=== PATIENT | female | born 1985 | race Two or more races ===

== ENCOUNTER 2025-06-29 18:03 | Emergency (ER) | payer SELFPAY ==
[~2025-06-29] VITALS: Ht 170.2 cm; Wt 100.0 kg
--- NOTE | 2025-06-29 18:17 | ED.PDOC ---
History of Present Illness HPI Comments 39-year-old female presents with chief complaint of left knee pain. Patient reports on jumping on a trampoline when her left knee, spontaneously, "popped." patient endorses on having pain, with obvious deformity to her left knee. Denies any further acute injuries or symptoms at this time. 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 TINWARE History Social History Smoker: Non-Smoker Alcohol: Denies ETOH Use Drugs: Denies Drug Use Lives In: Home All Other Systems: Reviewed and Negative (Comprehensive review of systems are negative unless otherwise stated in HPI) Physical Exam General Appearance: No Apparent Distress, Normal HEENT: Normal ENT Inspection, Pharynx Normal, TMs Normal Neck: Full Range of Motion, Non-Tender, Normal, Normal Inspection Respiratory: Chest Non-Tender, Lungs Clear, No Accessory Muscle Use, No Respiratory Distress, Normal Breath Sounds Cardiovascular: No Edema, No JVD, No Murmur, No Gallop, Normal Peripheral Pulses, Regular Rate/Rhythm Breast Exam: Deferred Gastrointestinal: No Organomegaly, Non Tender, No Pulsatile Mass, Normal Bowel Sounds, Soft Genitalia: Deferred Pelvic: Deferred Rectal: Deferred Extremities: No calf tenderness, Normal capillary refill, No pedal edema, Tender (Left knee), Other (Obvious deformity to left knee) Musculoskeletal : Apperance: Normal Neurologic: Alert, servicer coin machines II-XII nml as Tested, No Motor Deficits, Normal Affect, Normal Mood, No Sensory Deficits Cerebellar Function: Normal Reflexes: Normal Skin: Dry, Normal Color, Warm Lymphatic: No Adenopathy Was a procedure done? Was a procedure done?: Yes Sedation Sedation?: Yes Informed consent obtained: Yes Sedation start time: 18:40 Sedation end time: 18:55 Sedation total time: 15 minutes Reduction Indication: Dislocation Sedation: Consents obtained, Sedation as ordered (Propofol) Intra-articular anesthetic lew: Yes Nerve Block: Other (Left patella) Post-reduction x-ray show: Reduction, Good Alignment Informed consent obtained: Yes Risks/benefits/alt described: Yes Differential Dx Considerations may include: Dislocation, sprain, fractures, contusions, ecchymosis, among others X-Ray, Labs, Meds, VS Vital Signs Date Time Temp Pulse Resp B/P (MAP) Pulse Ox O2 Delivery O2 Flow Rate FiO2 06/29/25 18:38 76 17 137/77 06/29/25 18:12 98.0 96 16 167/84 99 98.0 Lab Test 06/29/25 18:19 Range/Units White Blood Count 10.8 4.4-10.8 10^3/uL Red Blood Count 4.20 4.0-5.20 10^6/uL Hemoglobin 11.8 L 12.2-16.2 g/dL Hematocrit 35.4 L 36.0-46.0 % Mean Corpuscular Volume 84.3 80.0-100.0 fL Mean Corpuscular Hemoglobin 28.2 28.0-32.0 pg Mean Corpuscular Hemoglobin Concent 33.4 32.0-36.0 g/dL Red Cell Distribution Width 12.5 11.8-14.3 % Platelet Count 345 140-450 10^3/uL Mean Platelet Volume 7.8 6.9-10.8 fL Neutrophils (%) (Auto) 60.3 37.0-80.0 % Lymphocytes (%) (Auto) 31.1 10.0-50.0 % Monocytes (%) (Auto) 7.0 0.0-12.0 % Eosinophils (%) (Auto) 1.2 0.0-7.0 % Basophils (%) (Auto) 0.4 0.0-2.0 % Neutrophils # (Auto) 6.5 1.6-8.6 10 ^3/uL Lymphocytes # (Auto) 3.4 0.4-5.4 10 ^3/uL Monocytes # (Auto) 0.8 0-1.3 10 ^3/uL Eosinophils # (Auto) 0.1 0-0.8 10 ^3/uL Basophils # (Auto) 0 0-0.2 10 ^3/uL Nucleated Red Blood Cells 0.0 % Sodium Level 139 136-145 mmol/L Potassium Level 3.9 3.5-5.1 mmol/L Chloride Level 106 98-107 mmol/L Carbon Dioxide Level 26 20-31 mmol/L Anion Gap 7 5-15 Blood Urea Nitrogen 12 9-23 mg/dL Creatinine 0.74 0.550-1.02 mg/dL Glomerular Filtration Rate Calc 105 >90 mL/min BUN/Creatinine Ratio 16.2 10.0-20.0 Serum Glucose 150 H 74-106 mg/dL Calcium Level 8.8 8.7-10.4 mg/dL Current Medications Medications (Trade) Dose Ordered Sig/Armando Route Start Time Stop Time Status Last Admin Morphine Sulfate 4 mg ONCE ONCE IV 06/29/25 18:15 06/29/25 18:16 DC 06/29/25 18:38 Ondansetron HCl (Zofran) 4 mg ONCE ONCE IV 06/29/25 18:15 06/29/25 18:16 DC 06/29/25 18:40 Sodium Chloride 1,000 ml @ 1,000 mls/hr Q1H ONCE IV 06/29/25 18:15 06/29/25 19:14 DC 06/29/25 18:31 Propofol (Diprivan) 100 mg ONCE ONCE IV 06/29/25 18:45 06/29/25 18:46 DC 06/29/25 18:42 Time of 1ST Reevaluation: 18:30 Reevaluation 1ST: Unchanged Time of 2ND Reevaluation: 18:53 Reevaluation 2ND: Improved Patient Education/Counseling: Diagnosis, Treatment Family Education/Counseling: No Family Present SEPSIS Sepsis Screen Physician Orders L Knee 3v Xray (06/29/25 18:12) L Knee 2v Xray (06/29/25 18:32) L Knee 2v Xray (06/29/25 18:42) Vital Signs Date Time Temp Pulse Resp B/P (MAP) Pulse Ox O2 Delivery O2 Flow Rate FiO2 06/29/25 18:38 76 17 137/77 06/29/25 18:12 98.0 96 16 167/84 99 98.0 Laboratory Tests Test 06/29/25 18:19 White Blood Count 10.8 10^3/uL (4.4-10.8) Medications Medications Dose Ordered Sig/Armando Route Start Time Stop Time Status Last Admin Dose Admin Morphine Sulfate 4 mg ONCE ONCE IV 06/29/25 18:15 06/29/25 18:16 DC 06/29/25 18:38 Ondansetron HCl 4 mg ONCE ONCE IV 06/29/25 18:15 06/29/25 18:16 DC 06/29/25 18:40 Propofol 100 mg ONCE ONCE IV 06/29/25 18:45 06/29/25 18:46 DC 06/29/25 18:42 Sodium Chloride 1,000 ml @ 1,000 mls/hr Q1H ONCE IV 06/29/25 18:15 06/29/25 19:14 DC 06/29/25 18:31 Departure 1 Departure Time of Disposition: 19:20 (And dislocated her patella are she has no tenderness at the proximal tibia. She is able to bear weight. We will discharge patient home with outpatient follow up) Impression: Primary Impression: Dislocation of left patella Disposition: HOME / SELF CARE / HOMELESS Condition: Stable Referrals: AMARIYLS BLEDSOE MD Additional Instructions: You dislocated your patella. Your patella was reduced. You were placed in a knee immobilizer. For pain you can take the followinam: Ibuprofen 400mg with food Noon: Acetaminophen 1000mg 4pm: Ibuprofen 400mg with food 8pm: Acetaminophen 1000mg You can use crutches as needed. You should follow up with our orthopedic surgeon within 1 week to ensure your healing well. If your symptoms worsen, or you have any other concerns, then please return to the Emergency Room. Discharged With: Self Critical Care Note Critical Care Time?: No Stability Stability form required: No Heart Score Heart Score: Heart Score Response (Comments) Value History N/A 0 EKG N/A 0 Age N/A 0 Risk Factors N/A 0 Troponin N/A 0 Total 0 I personally scribed for SRIDEVI BURK MD ([email or web address]) on 06/29/25 at 18:17. Electronically submitted by Deacon Schreiber ([email or web address]). I personally scribed for SRIDEVI BURK MD ([email or web address]) on 06/29/25 at 18:55. Electronically submitted by Deacon Schreiber ([email or web address]). SRIDEVI BURK MD Jun 29, 2025 18:17
[2025-06-29 18:30] VITALS: TEMP 98.6
[2025-06-29] MEDS: SODIUM CHLORIDE 0.9% 1,000 ML IV ONE (18:31)
[2025-06-29] MEDS: MORPHINE SULFATE 4 MG/ML SYR/VIAL IV ONE (18:38)
[2025-06-29] MEDS: ONDANSETRON HCL 4 MG/2 ML VIAL IV ONE (18:40)
[2025-06-29] MEDS: PROPOFOL 10 MG/ML 20 ML IV ONE ×2 (18:41→18:42)
[2025-06-29 18:49] LABS: Hematocrit 35.4 % (36.0-46.0); Hemoglobin 11.8 g/dL (12.2-16.2); Mean Corpuscular Hemoglobin 28.2 pg (28.0-32.0); Mean Corpuscular Volume 84.3 fL (80.0-100.0); Nucleated Red Blood Cells % 0.0 %
[2025-06-29 18:51] LABS: Chloride 106 mmol/L (98-107); Potassium 3.9 mmol/L (3.5-5.1); Sodium 139 mmol/L (136-145)
[2025-06-29 18:52] LABS: Anion Gap 7 (5-15); Calcium 8.8 mg/dL (8.7-10.4); Carbon Dioxide 26 mmol/L (20-31)
[2025-06-29 18:57] LABS: BUN/Creatinine Ratio 16.2 (10.0-20.0); Blood Urea Nitrogen 12 mg/dL (9-23)
[2025-06-29 18:58] LABS: Glucose 150 mg/dL (74-106)
[2025-06-29 19:00] VITALS: BP 126/72
--- NOTE | 2025-06-29 19:08 | DVH ---
CLINICAL INDICATION: fall, pain TECHNIQUE: XYXY L KNEE 3V XRAY Comparison: None FINDINGS/IMPRESSION: : Patella is laterally dislocated. No obvious fracture. Soft tissues are unremarkable.
--- NOTE | 2025-06-29 19:09 | DVH ---
CLINICAL INDICATION: POST REDUCTION TECHNIQUE: 2 radiographic views of the left knee were obtained. Comparison: None FINDINGS/IMPRESSION: No displaced fractures noted. There is a vertical lucent line through the lateral tibial plateau consider CT evaluate for nondisplaced fracture.
[2025-06-29 19:31] VITALS: PULSE 100; RESP 19; O2SAT 100
[2025-06-29 19:34] VITALS: O2SAT 100
== END 2025-06-29 19:47 | disposition home or self-care (01) ==
LOC: EDBD 18:03 → ER 18:03
DX: S83.005A Unspecified dislocation of left patella, initial encounter (principal); Z88.0 Allergy status to penicillin; X58.XXXA Exposure to other specified factors, initial encounter; Y93.44 Activity, trampolining; Y92.89 Other specified places as the place of occurrence of the external cause; Y99.8 Other external cause status
CPT/HCPCS: 27560; 36415; 73560; 73562; 80048; 85025; 96361; 96374; 96375; 99152; 99285; J2270; J2405; J2704; J7030